=== PATIENT | male | born 1975 | race Two or more races ===

== ENCOUNTER 2024-12-22 20:30 | Emergency (ER) | payer MEDICAID, SELFPAY ==
--- NOTE | 2024-12-22 20:39 | PC.NURSE ---
JUST AFTER TRIAGE, PT DECIDED TO LEAVE. PT WAS TRIAGED BUT NEVER SEEN.
--- NOTE | 2024-12-22 20:59 | PD.EDADDENDU ---
Emergency Room Addendum Addendum Narrative: I was told the patient eloped. Glenn Ponce MD
== END 2024-12-22 21:06 | disposition left against medical advice (07) ==
LOC: SERX 20:56
PROVIDERS: Emergency Provider Emergency Medicine
DX: Z53.21 Procedure and treatment not carried out due to patient leaving prior to being seen by health care provider (principal)

== ENCOUNTER 2025-01-25 13:18 | Outpatient (AMB) | payer MEDICAID, SELFPAY ==
--- NOTE | 2025-01-25 13:25 | GSCOFFNT_ITS ---
Vital Signs - [facility] 01/25/25 13:26 Height 1.68 m Height Method Measured Weight 81.306 kg Weight Measurement Method Standing Scale BMI 28.9 BP 134/83 H Blood Pressure Source Automatic Cuff Blood Pressure Location Right Upper Arm Position Sitting Respiration 18 Pulse 49 L Pulse Source Monitor Temp 96.9 F Temp Source Temporal Artery Scan Pulse Oximetry (%) 98 Oxygen Delivery Method Room Air Med/Allergies Allergies & Medications Allergies No Known Allergies Allergy (Verified 01/25/25 13:27) Medication Reconciliation methimazole 5 mg tablet 30 mg (6 x 5 mg) PO QDAY 60 days #360 tabs 11/16/21 [Rx Confirmed 01/25/25] propranolol 40 mg tablet 40 mg PO Q6H 60 days #240 tabs 11/16/21 [Rx Confirmed 01/25/25] polyethylene glycol 3350 17 gram/dose oral powder (Miralax) 4 g PO QDAY constipation #238 grams 01/25/25 [Rx] MA Intake Visit Data Collection New Patient or Established: Established Patient (seen at [facility] within 3 years) Reason for Visit:: REFERRAL COLONOSCOPY Pain Present Currently: Yes Pain Location: Abdomen Pain scale:: 10 Fluorescent Solution Mixer Required: Yes PCP or OBGYN visit in last 3 months: Yes Hx Now: No Do You Feel Safe at Home: Yes Authorities Contacted: N/A Smoking Status Smoking Status: Never smoker Immunization / Flu Flu Vaccine in the Last 12 Months: Yes Flu Vaccine Exclusion Criteria: Already Received Past Medical History Past Medical History NEUROLOGIC: Negative Neurological Disorders CARDIAC: Positive Cardiac Disorders (tachycardia) and Hypertension; Negative Myocardial Infarction, Angina, Hypercholesterolemia or Congestive Heart Failure RESPIRATORY: Negative Chronic Obstructive Pulmonary Disease (COPD) or Asthma GASTROINTESTINAL: Positive Gastrointestinal Disorders (when having problem with thyroid gets diarrhea) and Gastroesophageal Reflux Disease GENITOURINARY: Negative Genitourinary Disorders or Renal Disease ENDOCRINE: Positive Endocrine Disorders and Hyperthyroidism; Negative Diabetes Mellitus Type 1 or Diabetes Mellitus Type 2 HEMATOLOGIC: Negative Blood Disorders or Sickle Cell Disease OTHER HISTORY: Negative Falls, Blood Transfusions, Anesthesia Reactions or Cancer Social History SMOKING STATUS: Smoking status: Never smoker SECOND HAND EXPOSURE: second hand exposure: Yes (at work) ALCOHOL: Alcohol Intake: Never HOUSING: Housing: House LIVES WITH: Lives With: Family Travel Risk Travel Hx Recent Travel: No HPI HPI Narrative 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 Pt states for the past five months he has had abdominal pain in the LLQ which feels like a bubbling of gas he is unable to pass, and his stools have varied from pencil thin to very loose, with some blood upon wiping. Pt feels he has to strain to pass gas or have a BM sometimes to the point that he gets dizzy, and he also has had a decrease in appetite with unintentional weight loss of around 10lbs during this time period. He reports feeling bloated and is having difficulty doing his usual activities. Pt has not yet had a colonoscopy PMH: Hyperthyroidism PSHx: None Meds: Methimazole, propranolol Allergies: NKDA Family hx: No known CRC ROS Review of Systems Systems Reviewed: All systems reviewed, normal except as documented Endocrine Comments: HYPERTHYROIDISM Objective/Exam General General Appearance: alert, cooperative and well groomed Resp Respiratory exam: Absent respiratory distress Abdominal Abdominal exam: Present soft and tenderness (mild tenderness LLQ); Absent dis tention, guarding or rebound Assessment & Plan Diagnosis / Problem List (1) Encounter for diagnostic colonoscopy due to change in bowel habits: Status: Acute Assessment & Plan: 49M presenting with 5-month history of abdominal pain, change in bowel habits and unintentional weight loss. I explained that diagnostic colonoscopy is warranted to evaluate for a mechanical cause of his symptoms and enumerated risks of bleeding, perforation requiring emergency surgery and/or the need to abort prematurely for safety. All questions were answered and pt is agreeable to this plan Plan: Diagnostic colonoscopy 01/31/25 Office Procedures GNS Level of Care Nursing/Assessment Patient Status: Established Patient Nursing Assessment/Reassesment: Medication Reconciliation, Update PMH in EMR and Vital Signs Coordination of Care: Complex Care and Chronic Disease 1-5, Education Complex Pt/Fam, Consent,records obtained, informed consent, Lab and Imaging orders, Results/Orders obtained and Staff clarify orders Established Patient Charge Established Patient Point Assignment: 110 Established Patient Point Charge: EP Level 3 (80-115) Patient Portal Questionaires Social History Living Situation History Housing: House Tobacco History Smoking Status: Never smoker Second Hand Smoke Exposure: Yes (at work) Alcohol History Alcohol Intake: Never Domestic Abuse History Do You Feel Safe at Home: Yes Review of Systems Report any current symptoms Only answer those that you have currently: Past Medical History Past Medical History Have you ever been diagnosed with any of the following: Cardiology Problems Myocardial Infarction: No Angina: No Hypercholesterolemia: No Congestive Heart Failure: No Hypertension: Yes Respiratory Problems Chronic Obstructive Pulmonary Disease (COPD): No Asthma: No Stomache/Intestinal Problems Gastroesophageal Reflux Disease: Yes Genital/Urinary Problems Renal Disease: No Endocrine Problems Diabetes Mellitus Type 1: No Diabetes Mellitus Type 2: No Hyperthyroidism: Yes Blood Problems Sickle Cell Disease: No Other Problems Falls: No Blood Transfusions: No Anesthesia Reactions: No Cancer: No
[2025-01-25 13:26] VITALS: BP 134/83; PULSE 49; RESP 18; TEMP 36.1; O2SAT 98; BMI 28.9
== END 2025-01-25 14:13 | disposition home or self-care (01) ==
LOC: HODSRG 13:18
PROVIDERS: Supervising Provider Surgery; Visit Provider Surgery
DX: R19.4 Change in bowel habit (principal); I10 Essential (primary) hypertension; K21.9 Gastro-esophageal reflux disease without esophagitis
CPT/HCPCS: 99213; G0463

== ENCOUNTER → 2025-01-26 | Outpatient (CLI) | payer MEDICAID, SELFPAY ==
--- NOTE | 2025-01-26 13:00 | XR_ITS ---
Examination: CT brain head without contrast. 2-D sagittal coronal reconstructions Date and time of exam:January 26, 2025, 1334 hours INDICATIONS: Vertigo episodes beginning 4 months ago CTDI: vol (mGy):47.5 DLP: (mGycm):856 Technique: Multiple CT axial sections of the brain have been obtained, 5 mm slice thickness. Contrast has not been administered. 2-D sagittal, coronal reconstructions have been obtained Low dose protocols were performed. One or more of the following dose reduction techniques were used; automated exposure control, adjustment of the mA and/or KV according to patient size, use of iterative reconstruction technique. Findings: No significant ventricular enlargement. Intra-axial or extra-axial hemorrhage density is not seen. No mass effect or midline shift Basal cisterns are not remarkable. Fourth ventricle is midline. Cranial vault intact. Significant ethmoid sphenoid frontal chronic sinusitis and acute bilateral maxillary sinusitis Impression: Negative for acute hemorrhage, mass effect or midline shift If vertigo persists, consider brain MRI MRA without contrast follow-up
== END | disposition home or self-care (01) ==
PROVIDERS: PCP Family Medicine; Referring Provider Family Medicine; Visit Provider Family Medicine
DX: R26.89 Other abnormalities of gait and mobility (principal)
CPT/HCPCS: 70450

== ENCOUNTER 2025-01-31 07:10 | Day surgery (SDC) | payer MEDICAID, SELFPAY ==
[2025-01-30 08:26] VITALS: BMI 29.0
[2025-01-30 09:45] LABS: Basophils # (Auto) 0.0 Thou/mm3 (0.0-0.2); Basophils % (Auto) 1 % (0-2.5); Eosinophils # (Auto) 0.4 Thou/mm3 (0.0-0.5); Eosinophils % (Auto) 5 % (0-10); Hematocrit 44.7 % (41.0-53.0); Hemoglobin 15.4 g/dL (13.5-16.0); Immature Granulocytes Auto 0.01 Thou/mm3 (0.00-0.00); Lymphocytes # (Auto) 2.9 Thou/mm3 (1.0-4.8); Lymphocytes % (Auto) 40 % (10-50); Mean Corpuscular HGB Conc 34.5 g/dl (31.0-37.0); Mean Corpuscular Hemoglobin 29.0 pg (25.0-35.0); Mean Corpuscular Volume 84 fL (80-100); Monocytes # (Auto) 0.7 Thou/mm3 (0.0-0.8); Monocytes % (Auto) 10 % (0-12); Neutrophils # (Auto) 3.2 Thou/mm3 (1.8-7.7); Neutrophils % (Auto) 44 % (37-80); Nucleated Red Blood Cell # 0.00 Thou/mm3 (0.00-0.00); Nucleated Red Blood Cell % 0 /100 WBC (0); Platelet Count 217 Thou/mm3 (140-440); RDW Standard Deviation 40.7 fL (35.1-43.9); Red Blood Count 5.31 Miln/mm3 (4.50-5.90); White Blood Count 7.1 Thou/mm3 (3.8-10.6)
[2025-01-30 09:56] LABS: Anion Gap 6 (7-16); BUN/Creatinine Ratio 18 Ratio (12-20); Blood Urea Nitrogen 16 mg/dL (9-23); Calcium 9.0 mg/dL (8.3-10.6); Carbon Dioxide 26.8 mMol/L (20.0-31.0); Chloride 106 mMol/L (98-107); Creatinine (Component) 0.9 mg/dL (0.6-1.3); Estimated Creatinine Clearance 97.3 mL/min (>60); Glucose 90 mg/dL (74-106); Osmolality,Calculated 278 (275-295); Potassium 3.7 mMol/L (3.4-5.1); Sodium 139 mMol/L (136-145); eGFR > 60 See Note
[2025-01-30 10:01] LABS: INR 1.1 (0.9-1.3); Partial Thromboplastin Time 28.0 Seconds (22.0-36.0); Prothrombin Time 11.6 Seconds (9.0-12.2)
[2025-01-31] VITALS (9 sets, daily range): BP systolic 129–154; BP diastolic 87–96; PULSE 48–77; RESP 12–20; TEMP 36.9–37; O2SAT 96–100; BMI 29.4
[2025-01-31] MEDS: RINGERS LACTATED 1000 ML 1,000 ML 20 ML IV (07:53)
--- NOTE | 2025-01-31 09:25 | SUR.PREOP ---
PER ANESTHESIA IS NOT NEEDED FOR THIS PROCEDURE AND IT IS OKAY TO PROCEED WITH IV SEDATION. CONSENT IS UPDATED TO REFLECT IV SEDATION.
--- NOTE | 2025-01-31 10:05 | SUR.PHASEII ---
0959: Pt received in [facility] via [facility]. Report from Nat GUSTAFSON. Pt groggy. Easily aroused with eye opening then drifts back to sleep. Resp even, unlabored. VS stable. ID low, but is within pre procedure baseline. No c/o pain, discomfort.
--- NOTE | 2025-01-31 10:23 | SUR.PHASEII ---
1023: Pt more awake, alert. Resp even, unlabored. VS stable. Denies pain. Sitting up tolerating po fluids with no difficulty swallowing and no n/v.
--- NOTE | 2025-01-31 11:05 | SUR.PHASEII ---
1047: Pt fully awake, oriented x3. Pt assisted to restroom. Ambulation steady. Pt stated he passed large amount of flatus. Denies pain. Pt requested interpret for him. Both stated understanding of discharge instructions. Pt discharged from [facility] in stable condition.
== END 2025-01-31 10:47 | disposition home or self-care (01) ==
PROVIDERS: PCP Family Medicine; Referring Provider Surgery; Visit Provider Surgery
PROC: 0DJD8ZZ Inspection of Lower Intestinal Tract, Via Natural or Artificial Opening Endoscopic (ICD-10-PCS; CPT 45378; principal; 2025-01-31 09:00)
DX: K57.30 Diverticulosis of large intestine without perforation or abscess without bleeding (principal); K63.89 Other specified diseases of intestine
CPT/HCPCS: 45380; 36415; 80048; 80053; 85025; 85610; 85730; J1200; J2250; J3010; J7120

== ENCOUNTER 2025-02-12 09:31 | Outpatient (AMB) | payer MEDICAID, SELFPAY ==
--- NOTE | 2025-02-12 09:37 | PD.GSCLVISIT ---
Vital Signs - [facility] 02/12/25 09:40 Height 1.7 m Height Method Measured Weight 80.484 kg Weight Measurement Method Standing Scale BMI 27.8 BP 126/71 Blood Pressure Source Automatic Cuff Blood Pressure Location Left Upper Arm Position Sitting Respiration 18 Pulse 51 L Pulse Source Monitor Temp 98.0 F Temp Source Temporal Artery Scan Pulse Oximetry (%) 96 Oxygen Delivery Method Room Air Med/Allergies Allergies & Medications Allergies No Known Allergies Allergy (Verified 02/12/25 09:42) Medication Reconciliation polyethylene glycol 3350 17 gram/dose oral powder (Miralax) 4 g PO QDAY constipation #238 grams 01/25/25 [Rx Confirmed 02/12/25] methimazole 10 mg tablet 10 mg PO QDAY 01/30/25 [History Confirmed 02/12/25] peg 3350-electrolytes 236 gram-22.74 gram-6.74 gram-5.86 gram solution (Golytely) 240 ml PO Q10M #4,000 mL 01/30/25 [Rx Confirmed 02/12/25] linaclotide 145 mcg capsule (Linzess) 145 mcg PO QDAY constipation #30 caps 02/12/25 [Rx] MA Intake Visit Data Collection New Patient or Established: Established Patient (seen at [facility] within 3 years) Seen by Clinical Staff ONLY (RN/MA): No Pain Present Currently: Yes Pain Location: Abdomen Pain scale:: 4 Pain Scale Used: Jeffers-Brown/Numerical Teamsite Developer Required: Yes PCP or OBGYN visit in last 3 months: Yes Hx Now: No Do You Feel Safe at Home: Yes Authorities Contacted: N/A Smoking Status Smoking Status: Never smoker Immunization / Flu Flu Vaccine in the Last 12 Months: Yes Flu Vaccine Exclusion Criteria: Already Received Past Medical History Past Medical History NEUROLOGIC: Positive Head Trauma (got kicked by cow a yr ago, hit his head with a machine last week); Negative Neurological Disorders or Seizures CARDIAC: Positive Cardiac Disorders (tachycardia) and Hypertension; Negative Myocardial Infarction, Angina, Hypercholesterolemia or Congestive Heart Failure RESPIRATORY: Negative Chronic Obstructive Pulmonary Disease (COPD) or Asthma GASTROINTESTINAL: Positive Gastrointestinal Disorders (when having problem with thyroid gets diarrhea) and Gastroesophageal Reflux Disease GENITOURINARY: Negative Genitourinary Disorders or Renal Disease ENT: Positive Head Trauma (got kicked by cow a yr ago, hit his head with a machine last week) ENDOCRINE: Positive Endocrine Disorders and Hyperthyroidism; Negative Diabetes Mellitus Type 1 or Diabetes Mellitus Type 2 HEMATOLOGIC: Negative Blood Disorders or Sickle Cell Disease OTHER HISTORY: Positive Chicken Pox; Negative Autoimmune Disease, Falls, Blood Transfusions, Anesthesia Reactions or Cancer Family History FAMILY HISTORY: Negative Family Psychiatric Problems, Family Respiratory Disorders, Family Cardiac Disorders, Family Gastrointestinal Problems, Family Cancer, Family Surgery or Family Anesthesia Reaction Social History SMOKING STATUS: Smoking status: Never smoker SECOND HAND EXPOSURE: second hand exposure: Yes (at work) ALCOHOL: Alcohol Intake: Never HOUSING: Housing: House LIVES WITH: Lives With: Family HPI HPI Narrative 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 Pt reports feeling well overall, he is taking benefiber packets which contain 3g of fiber and would like to increase up to TID but wanted to check first. He is also wanting to get a prescription for constipation since he will not be able to take as much benefiber on days when he is working ROS Review of Systems Systems Reviewed: All systems reviewed, normal except as documented Objective/Exam General General Appearance: alert, cooperative and well groomed Resp Respiratory exam: Absent respiratory distress Assessment & Plan Diagnosis / Problem List (1) Encounter to discuss colonoscopy results: Status: Acute Assessment & Plan: 49M referred for change in bowel habits now s/p colonoscopy which was negative aside from diverticulosis. I will prescribe linzess for his constipation refractory to adequate water/fiber intake and will follow up in 3 mos. All questions were answered and pt is agreeable with this plan Office Procedures GNS Level of Care Nursing/Assessment Patient Status: Established Patient Nursing Assessment/Reassesment: Medication Reconciliation, Update PMH in EMR and Vital Signs Coordination of Care: Complex Care and Chronic Disease 1-5, Consent,records obtained, informed consent, Education Simp Pt/Fam, Results/Orders obtained and Staff clarify orders Special Needs: Language special needs Established Patient Charge Established Patient Point Assignment: 90 Established Patient Point Charge: EP Level 3 (80-115) Patient Portal Questionaires Social History Living Situation History Housing: House Tobacco History Smoking Status: Never smoker Second Hand Smoke Exposure: Yes (at work) Alcohol History Alcohol Intake: Never Domestic Abuse History Do You Feel Safe at Home: Yes Review of Systems Report any current symptoms Only answer those that you have currently: Past Medical History Past Medical History Have you ever been diagnosed with any of the following: Neurological Problems Seizures: No Head Trauma: Yes (got kicked by cow a yr ago, hit his head with a machine last week) Cardiology Problems Myocardial Infarction: No Angina: No Hypercholesterolemia: No Congestive Heart Failure: No Hypertension: Yes Respiratory Problems Chronic Obstructive Pulmonary Disease (COPD): No Asthma: No Stomache/Intestinal Problems Gastroesophageal Reflux Disease: Yes Genital/Urinary Problems Renal Disease: No Endocrine Problems Diabetes Mellitus Type 1: No Diabetes Mellitus Type 2: No Hyperthyroidism: Yes Blood Problems Sickle Cell Disease: No Other Problems Autoimmune Disease: No Falls: No Blood Transfusions: No Anesthesia Reactions: No Chicken Pox: Yes Cancer: No
[2025-02-12 09:40] VITALS: BP 126/71; PULSE 51; RESP 18; TEMP 36.7; O2SAT 96; BMI 27.8
== END 2025-02-12 10:37 | disposition home or self-care (01) ==
LOC: HODSRG 09:31
PROVIDERS: PCP Family Medicine; Referring Provider Family Medicine; Supervising Provider Surgery; Visit Provider Surgery
DX: Z71.2 Person consulting for explanation of examination or test findings (principal); I10 Essential (primary) hypertension; K21.9 Gastro-esophageal reflux disease without esophagitis; K57.90 Diverticulosis of intestine, part unspecified, without perforation or abscess without bleeding
CPT/HCPCS: 99213; G0463

== ENCOUNTER 2025-03-17 19:15 | Emergency (ER) | payer MEDICAID, SELFPAY ==
[2025-03-17 19:15] VITALS: BMI 27.3
[2025-03-17 19:52] VITALS: BP 163/87; PULSE 64; RESP 18; TEMP 36.9; O2SAT 98
--- NOTE | 2025-03-17 20:27 | EKG_ITS ---
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
--- NOTE | 2025-03-17 21:19 | XR_ITS ---
Examination: Hand, right 2 views Technique: Hand AP, oblique, lateral 3 views Date and time of exam: March 17, 2025 2109 hrs. Indications: Injury to the hand today with pain. Findings: Old fracture deformity fifth metacarpal No acute fracture No dislocation No foreign body Impression: No acute fracture
[2025-03-17 21:37] LABS: Basophils # (Auto) 0.1 Thou/mm3 (0.0-0.2); Basophils % (Auto) 1 % (0-2.5); Eosinophils # (Auto) 0.4 Thou/mm3 (0.0-0.5); Eosinophils % (Auto) 5 % (0-10); Hematocrit 44.1 % (41.0-53.0); Hemoglobin 15.1 g/dL (13.5-16.0); Immature Granulocytes Auto 0.01 Thou/mm3 (0.00-0.00); Lymphocytes # (Auto) 2.5 Thou/mm3 (1.0-4.8); Lymphocytes % (Auto) 31 % (10-50); Mean Corpuscular HGB Conc 34.2 g/dl (31.0-37.0); Mean Corpuscular Hemoglobin 28.9 pg (25.0-35.0); Mean Corpuscular Volume 85 fL (80-100); Monocytes # (Auto) 0.7 Thou/mm3 (0.0-0.8); Monocytes % (Auto) 8 % (0-12); Neutrophils # (Auto) 4.4 Thou/mm3 (1.8-7.7); Neutrophils % (Auto) 55 % (37-80); Nucleated Red Blood Cell # 0.00 Thou/mm3 (0.00-0.00); Nucleated Red Blood Cell % 0 /100 WBC (0); Platelet Count 206 Thou/mm3 (140-440); RDW Standard Deviation 40.6 fL (35.1-43.9); Red Blood Count 5.22 Miln/mm3 (4.50-5.90); White Blood Count 8.0 Thou/mm3 (3.8-10.6)
[2025-03-17 21:50] LABS: Collection Type, Urine Voided; Squamous Epithelial Cell,Urine 0 /hpf (0-5)
[2025-03-17 21:55] LABS: Bilirubin,Urine Negative (Negative); Blood,Urine Negative (Negative); Clarity,Urine Clear (Clear/Hazy); Color,Urine Lt-Yellow (Lt Yel-Yel); Glucose, Urine Negative (Negative); Ketones,Urine Negative (Negative); Leukocyte Esterase,Urine Negative (Negative); Nitrite,Urine Negative (Negative); PH,Urine 6.5 (5.0-7.0); Protein,Urine Negative (Neg - Trace); RBC,Urine 2 /hpf (0-3); Specific Gravity,Urine 1.017 (1.001-1.035); Urobilinogen,Urine Negative mg/dL (0.0-1.0); WBC,Urine 1 /hpf (0-5)
[2025-03-17 21:58] LABS: Alanine Aminotransferase 28 U/L (10-49); Albumin, Serum 4.4 gm/dL (3.5-5.0); Albumin/Globulin Ratio 1.5 (1.2-2.2); Alkaline Phosphatase 91 U/L (46-116); Anion Gap 8 (7-16); Aspartate Amino Transferase 31 U/L (0-34); BUN/Creatinine Ratio 16 Ratio (12-20); Bilirubin,Total 0.7 mg/dL (0.3-1.2); Blood Urea Nitrogen 11 mg/dL (9-23); Calcium 9.2 mg/dL (8.3-10.6); Calcium (Corrected) 9.2 mg/dL (8.5-10.1); Carbon Dioxide 29.4 mMol/L (20.0-31.0); Chloride 105 mMol/L (98-107); Creatinine (Component) 0.7 mg/dL (0.6-1.3); Estimated Creatinine Clearance 130.4 mL/min (>60); Globulin 2.9 gm/dL (2.3-3.5); Glucose 90 mg/dL (74-106); Osmolality,Calculated 282 (275-295); Potassium 3.8 mMol/L (3.4-5.1); Sodium 142 mMol/L (136-145); Total Protein 7.3 gm/dL (5.7-8.2); eGFR > 60 See Note
[2025-03-17] MEDS: DIPHTH,PERTUSS(ACELL),TET VAC 0.5 ML SYR- ADULT IMi (22:17)
--- NOTE | 2025-03-17 23:09 | PD.EDWOUND ---
ED Wound/Laceration-RME/HPI General Chief Complaint: Dizziness Stated Complaint: CUT RIGHT FIFTH FINGER, EPISODE OF DIZZINESS AT 10 Time Seen by Provider: 03/17/25 19:56 Arrival date/time: 03/17/25 19:15 This is a case of 49-year-old male with no medical history came in in the emergency room due to finger laceration history of present illness started 1 hour prior to arrival in the emergency room patient was carrying a heavy metal and fell on his fifth digit right hand sustaining a finger laceration and nail avulsion patient also noted to have dizziness and wanted to be evaluated on the symptoms patient denies any headache denies any blurring of vision denies any numbness weakness or tingling sensation patient tetanus shot is not up-to-date Limitations: no limitations Related Data Home Medications ?Medication ?Instructions ?Recorded ?Confirmed methimazole 10 mg tablet 10 mg PO QDAY 01/30/25 02/12/25 Previous Rx's ?Medication ?Instructions ?Recorded polyethylene glycol 3350 17 4 g PO QDAY constipation #238 grams 01/25/25 gram/dose oral powder (Miralax) peg 3350-electrolytes 236 240 ml PO Q10M #4,000 mL 01/30/25 gram-22.74 gram-6.74 gram-5.86 gram solution (Golytely) linaclotide 145 mcg capsule 145 mcg PO QDAY constipation #30 02/12/25 (Linzess) caps cephalexin 500 mg capsule 500 mg PO QID 10 days #40 caps 03/17/25 ibuprofen 800 mg tablet 800 mg PO Q8H PRN pain #20 tabs 03/17/25 meclizine 25 mg tablet 25 mg PO TID PRN dizziness #20 tabs 03/17/25 mupirocin 2 % topical ointment 1 applic topical TID #22 grams 03/17/25 Allergies Allergy/AdvReac Type Severity Reaction Status Date / Time No Known Allergies Allergy Verified 03/17/25 19:15 Review of Systems Review of Systems Systems Reviewed: All systems reviewed, normal except as documented Constitutional Constitutional: Reports system reviewed and no additional complaints, except as documented, Reports as per HPI, Denies frequent falls, Denies headache(s) and Denies weakness Eyes Eyes: Denies loss of vision ENT Ears, Nose, Mouth, and Throat: Denies abnormal hearing, Denies disequilibrium, Reports dizziness, Denies headache(s) and Reports vertigo Cardiovascular Cardiovascular: Reports system reviewed and no additional complaints, except as documented, Reports as per HPI and Denies syncope Respiratory Respiratory: Reports system reviewed and no additional complaints, except as documented and Reports as per HPI Gastrointestinal Gastrointestinal: Reports system reviewed and no additional complaints, except as documented, Reports as per HPI, Denies abdominal pain, Denies nausea and Denies vomiting Musculoskeletal Musculoskeletal: Reports system reviewed and no additional complaints, except as documented, Reports as per HPI, Denies abnormal gait, Denies numbness, Denies tingling and Reports other (Finger pain) Neurologic Neurologic: Reports system reviewed and no additional complaints, except as documented, Reports as per HPI, Denies abnormal gait, Denies abnormal hearing, Denies abnormal movements, Denies abnormal speech, Denies behavioral changes, Denies burning sensations, Denies confusion, Denies convulsions, Denies disequilibrium, Reports dizziness, Denies localized weakness, Denies frequent falls, Denies headache(s), Denies lack of coordination, Denies loss of vision, Denies memory loss, Denies numbness, Denies other visual disturbances, Denies paresthesias, Denies radicular pain, Denies restless legs, Denies seizure-like activity, Denies sensory deficit, Denies syncope, Denies tingling, Denies tremor(s), Reports vertigo and Denies weakness Psychiatric Psychiatric: Denies behavioral changes, Denies confusion and Denies memory loss Past Medical History Past Medical History NEUROLOGIC: Positive Head Trauma (got kicked by cow a yr ago, hit his head with a machine last week); Negative Neurological Disorders or Seizures CARDIAC: Positive Cardiac Disorders (tachycardia) and Hypertension; Negative Myocardial Infarction, Angina, Hypercholesterolemia or Congestive Heart Failure RESPIRATORY: Negative Chronic Obstructive Pulmonary Disease (COPD) or Asthma GASTROINTESTINAL: Positive Gastrointestinal Disorders (when having problem with thyroid gets diarrhea) and Gastroesophageal Reflux Disease GENITOURINARY: Negative Genitourinary Disorders or Renal Disease MUSCULOSKELETAL: Positive Musculoskeletal Disorders ENT: Positive Head Trauma (got kicked by cow a yr ago, hit his head with a machine last week) ENDOCRINE: Positive Endocrine Disorders and Hyperthyroidism; Negative Diabetes Mellitus Type 1 or Diabetes Mellitus Type 2 HEMATOLOGIC: Negative Blood Disorders or Sickle Cell Disease OTHER HISTORY: Positive Chicken Pox; Negative Autoimmune Disease, Falls, Blood Transfusions, Anesthesia Reactions or Cancer Family History FAMILY HISTORY: Negative Family Psychiatric Problems, Family Respiratory Disorders, Family Cardiac Disorders, Family Gastrointestinal Problems, Family Cancer, Family Surgery or Family Anesthesia Reaction Social History SMOKING STATUS: Never smoker SECOND HAND EXPOSURE: Yes (at work) ED Exam General Limitations: Present no limitations General appearance: Present alert, in no apparent distress and other (Patient is awake alert oriented not in distress nontoxic looking well-hydrated well-nourished) Head Head exam: Present atraumatic, normocephalic and normal inspection Eye Eye exam: Present normal appearance, PERRL, EOMI and other (PERRL EOM intact normal conjunctiva no palpable edema) ENT ENT exam: Present normal exam, normal oropharynx, mucous membranes moist and other (HEENT exam is normal unremarkable) Neck Neck exam: Present normal inspection, full ROM, trachea midline and other (Negative for meningeal sign); Absent tenderness, meningismus, lymphadenopathy or thyromegaly Chest Chest inspection: Present normal inspection and symmetric chest wall rise; Absent tenderness Respiratory Respiratory exam: Present normal lung sounds bilaterally; Absent respiratory distress, wheezes, stridor, accessory muscle use or prolonged expiratory phase Cardiovascular Cardiovascular exam: Present regular rate, normal rhythm and normal heart sounds; Absent bradycardia, tachycardia, irregular rhythm, systolic murmur or diastolic murmur Abdominal Exam Abdominal exam: Present soft and normal bowel sounds; Absent distention, tenderness, guarding, rebound, rigidity, diminished bowel sounds, hyperactive bowel sounds, hypoactive bowel sounds or organomegaly Extremities Exam Extremities exam: Present normal inspection and full ROM Back Exam Back exam: Present normal inspection and full ROM Neurological Exam Neurological exam: Present alert, oriented X3, CN II-XII intact, normal gait and other (Awake alert oriented x 4 no focal deficit GCS 15/15 steady gait memory intact no facial droop no slurring of speech negative Babinski motor or sensory reflex were normal in all extremities); Absent motor sensory deficit or reflexes normal Psychiatric Psychiatric exam: Present normal affect and normal mood Skin Skin exam: Present warm, dry, intact, normal color and other (Patient sustained a 4 cm laceration on distal end of the fifth finger right hand with 50% nail avulsion and laceration and nailbed no foreign body no bone or tendon injury no cellulitis no abscess ROM intact neurovascular intact) Course Quality Measures none Orders Category Date Time Status EKG (ED ONLY) *Do not use* NOW Care 03/17/25 20:28 Completed EKG (ED Only) Stat Exams 03/17/25 20:27 Draft XR hand RT 2V Stat Exams 03/17/25 21:19 Completed CBC Stat Lab 03/17/25 21:04 Completed CMP [Comprehensive Metabolic Panel] Stat Lab 03/17/25 21:04 Completed Urinalysis Stat Lab 03/17/25 21:48 Completed HYDROcodone*/APAP 5/325 [[place] 5/325] Med 03/17/25 23:06 Discontinued 1 tab PO X1 ONE TET,DIP/PERT AC (Adult)-Tdap [Boostrix Adult (Tdap) Med 03/17/25 20:00 Discontinued Vacc] 0.5 ml IMI .ONCE ONE cephALEXin [Keflex] Med 03/17/25 23:06 Discontinued 500 mg PO X1 ONE Vital Signs Vital signs: Vital Signs Temperature 98.4 F 03/17/25 19:52 Pulse Rate 64 03/17/25 19:52 Respiratory Rate 18 03/17/25 19:52 Blood Pressure 163/87 H 03/17/25 19:52 Pulse Oximetry (%) 98 03/17/25 19:52 Oxygen Delivery Method Room Air 03/17/25 19:52 Oxygen saturation is 98% in room air BP was rechecked and noted to be 135/85 PROCEDURES: Laceration Laceration 1: Site: other (5thdigit right hand) Side (If applicable): right Size (cm): 4 Description: stellate Depth: simple, single layer Local Anesthetic: lidocaine 1% Amount of anesthesia used (mL): 6 Pre-repair: wound explored, irrigated extensively and deep structures intact Skin layer closed with: nylon Suture size (cm): 4-0 Number of sutures: 6 Technique: simple, interrupted and other (Completely removed the 50% nail avulsion laceration repair of the nailbed was also performed) Wound / Laceration MDM Narrative MDM Narrative:: This is a case of 49-year-old male with no medical history came in in the emergency room due to finger laceration history of present illness started 1 hour prior to arrival in the emergency room patient was carrying a heavy metal and fell on his fifth digit right hand sustaining a finger laceration and nail avulsion patient also noted to have dizziness and wanted to be evaluated on the symptoms patient denies any headache denies any blurring of vision denies any numbness weakness or tingling sensation patient tetanus shot is not up-to-date physical examination patient is awake alert oriented not in distress nontoxic looking vital signs stable BP stable not tachycardic not tachypneic not hypoxic and afebrile patient neurological exam is normal awake alert oriented x 4 no focal deficit GCS 15/15 steady gait patient lungs sound is clear no crackles no rales no retraction no stridor heart normal rate regular rhythm no murmur patient sustained a 4 cm laceration on the distal end of the fifth digit right hand with involvement of the nail patient noted to have 50% nail avulsion with laceration also with the nailbed ROM intact neurovascular still intact the rest of the physical examination were normal blood test showed no leukocytosis no anemia kidney liver function is normal no electrolyte imbalance urinalysis is normal EKG sinus bradycardia 55 at the time of exam I think the dizziness is due to anxiety due to laceration of the finger it is not cardiac nor pulmonary in origin nor neurological in order patient laceration repair was performed patient tolerated well the procedure removal of the 50% of the nail was removed repair of the nailbed was also performed patient tolerated well the procedure bleeding controlled procedure done via [place] protocol and via sterile technique finger splint was applied x-ray showed no fracture patient will follow-up with PCP in 2 days for reevaluation and to be referred to neurologist for dizziness and for wound check in 10 days for removal of suture for any signs and symptoms of infection patient was informed to return in the emergency room immediately or call 911 Patient was discharged with comfortable condition walking with stable gait. Patient verbalized no further complains explained diagnosis and answered patient question. Patient is comfortable with the proposed management plan including the need to follow up with his/her primary care physician and any specialist if applicable Discussed patient for any urgent condition or worsening sx, He/She needed to go to emergency room immediately or call 911. Patient acknowledge the responsibility to follow up as instructed and to monitor her/his symptoms. For any persistence of the symptoms for more than 3-5 days return precaution advised. Discussed the result of the test and was given printed discharge instruction Patient data External records reviewed:: [facility] previous records Clinical information provided by:: patient Social determinants that could affect healthcare access:: none Patient has the following chronic illnesses:: None How is presenting disease/condition affected by chronic disease/condition?: no chronic disease Evaluation data The following diagnostics were reviewed and interpreted by me:: lab results, radiology exam(s) and EKG tracing(s) Lab and/or radiology exams considered but not ordered:: Reviewed Interpretation Summary: Reviewed Medications / Prescriptions Medications or Prescriptions considered but not ordered:: Given Medication administrations:: Medication Administration History Discontinued Medications Hydrocodone Bitart/Acetaminophen (Hydrocodone/Apap 5/325 Tablet) 1 tab PO X1 ONE Stop: 03/17/25 23:07 Cephalexin HCl (Cephalexin 250 Mg Capsule) 500 mg PO X1 ONE Stop: 03/17/25 23:07 Diphtheria/Tetanus/Acell Pertussis (Diphth,Pertuss(Acell),Tet Vac 0.5 Ml Syr- Adult) 0.5 ml IMi .ONCE ONE Stop: 03/17/25 20:01 Last Admin: 03/17/25 22:17 Dose: 0.5 ml Documented By: OA Given Consultations Consultation(s) initiated? (list below): No Diagnosis Wound Differential Diagnosis: laceration Most likely diagnosis given after review of the tests above:: Finger laceration Admission Indicated Admission indicated?: not indicated Explain why admission is indicated or not indicated:: Not indicated Admission Request Was there a request for admission?: No Admission Attestation Admission request attestation: Not indicated Disposition Plan Disposition Plan: Discharge Discharge Attestation Discharge Attestation: The patient and all family members were given an opportunity to ask questions and understood the discharge instructions. Discharge instructions specifically effects, indications for sooner follow up or return to the emergency department, and the expected course of current diagnosis. Patient condition: Stable Discharge Plan Plan Patient Disposition: HOME (Self Care) Patient condition on transfer: Stable Prescriptions/Referrals Prescriptions/Med Rec: New cephalexin 500 mg capsule 500 mg PO QID 10 Days Qty: 40 0RF ibuprofen 800 mg tablet 800 mg PO Q8H PRN (Reason: pain) Qty: 20 0RF meclizine 25 mg tablet 25 mg PO TID PRN (Reason: dizziness) Qty: 20 0RF mupirocin 2 % ointment 1 applic topical TID Qty: 22 0RF No Action Linzess 145 mcg capsule 145 mcg PO QDAY Qty: 30 3RF Rx Instructions: Take 30mins before meal at the same time daily polyethylene glycol 3350 [Miralax] 17 gram/dose powder 4 g PO QDAY Qty: 238 0RF Rx Instructions: Take 1-2 times daily as needed for constipation peg 3350-electrolytes [Golytely] 236-22.74-6.74 -5.86 gram recon soln 240 ml PO Q10M Qty: 4000 0RF Rx Instructions: until fecal effluent is clear methimazole 10 mg tablet 10 mg PO QDAY Referrals: No Primary/Family,Physician [Primary Care Provider] - In 1 week Problem List Clinical Impression: Finger laceration, Nail avulsion, finger, Dizziness Patient/Caregiver Discharge Instructions Education Materials: Suture Care, ED Dizziness, Uncertain Cause, ED Laceration: All Closures, ED Detached Fingernail or Toenail Additional Instructions: Follow-up with your primary care physician in 2 days for reevaluation and to be referred to a neurologist for further evaluation and and treatment of dizziness you need also to to follow-up with your primary care physician in 2 days for wound reevaluation or wound check and in 10 days for removal of suture take your medication as directed finish the course of antibiotic keep the wound clean and dry keep hydrated Print Language: Slovenian Stand Alone Forms: Graciela Award Info., Patient Portal Info Letter PA/COLOR DEVELOPER Supervising Physician PA/COLOR DEVELOPER Supervising Physician: Dr. Brendan Ford
== END 2025-03-17 23:24 | disposition home or self-care (01) ==
PROVIDERS: Nurse Practitioner Family; Emergency Provider Emergency Medicine
DX: S61.316A Laceration without foreign body of right little finger with damage to nail, initial encounter (principal); W19.XXXA Unspecified fall, initial encounter; Z23 Encounter for immunization
CPT/HCPCS: 12002; 36415; 73120; 80053; 81001; 85025; 90471; 90715; 93005; 99283